=== PATIENT | male | born 1990 | race Caucasian/White ===

== ENCOUNTER 2024-02-07 14:32 | Emergency (ER) | payer OTHER ==
--- NOTE | 2024-02-07 15:31 | RAD REPORT ---
EXAM DESCRIPTION: RAD - Chest Single View - 02/07/2024 3:16 pm CLINICAL HISTORY: CHEST PAIN COMPARISON: No comparisons FINDINGS: Lines: None. Lungs: No evidence of edema or pneumonia. Pleural: No significant pleural effusions or pneumothorax. Cardiac: The heart size is within normal limits. Mediastinum: Within normal limits. Bones: No acute fractures. Other: None IMPRESSION: No acute cardiopulmonary disease.
[2024-02-07 16:04] LABS: Absolute Eosinophils 0.1 K/uL (0-0.5); Absolute Lymphocytes (CBC) 1.3 K/uL (0.7-4.9); Absolute Monocytes 0.6 K/uL (0.1-1.3); Absolute Neutrophil 2.1 K/uL (1.8-8.0); Basophils % 0.6 % (0-1.3); Eosinophils % 1.8 % (0-4.4); Hematocrit 45.8 % (39.6-49.0); Hemoglobin 15.2 g/dL (13.6-17.9); Lymphocytes % 32.5 % (15.3-44.8); MCHC 33.2 g/dL (32.0-36.0); MCV 93.3 fL (80-100); MPV 9.9 fL (7.6-11.3); Monocytes % 14.3 % (3.3-12.3); Neutrophils % 50.8 % (41.7-73.7); Platelets 215 thou/uL (152-406); RBC Red Blood Cell Count 4.91 M/uL (4.33-5.43); Red Cell Distribution Width 12.6 % (12.1-15.2)
[2024-02-07 18:05] LABS: Troponin High Sensitivity 17.3 pg/mL (<58.9)
--- NOTE | 2024-02-07 18:14 | ER ---
Nurse's Notes [facility] Name: Aroldo Muniz IV Age: 33 yrs Sex: Male : 1990 Arrival Date: 02/07/2024 Time: 14:32 Bed 7 Private MD: Diagnosis: Chest pain, unspecified Presentation: 02/06 15:02 Chief complaint: Patient states: Pt c/o pain/tightness in chest while at rest since tl4 last night. Pt states his limbs feel "clogged". Pt states chest discomfort has been ongoing since last night but has gotten better. Pt states he has had similar episodes in the past associated with anxiety. Coronavirus screen: At this time, the client does not indicate any symptoms associated with coronavirus-19. Ebola Screen: No symptoms or risks identified at this time. Initial Sepsis Screen: Does the patient meet any 2 criteria? No. Patient's initial sepsis screen is negative. Does the patient have a suspected source of infection? No. Patient's initial sepsis screen is negative. Risk Assessment: Do you want to hurt yourself or someone else? Patient reports no desire to harm self or others. Onset of symptoms was February 06, 2024. 15:02 Method Of Arrival: Ambulatory tl4 15:02 Acuity: HUGH 3 tl4 Triage Assessment: 15:07 General: Appears in no apparent distress. Behavior is calm, cooperative. Pain: tl4 Complains of pain in chest. EENT: No signs and/or symptoms were reported regarding the EENT system. Neuro: Level of Consciousness is awake, alert, obeys commands, Oriented to person, place, time, situation, Moves all extremities. Full function Gait is steady, Speech is normal. Cardiovascular: Reports chest pain. Respiratory: Airway is patent Respiratory effort is even, unlabored, Respiratory pattern is regular, symmetrical. GI: No signs and/or symptoms were reported involving the gastrointestinal system. : No signs and/or symptoms were reported regarding the genitourinary system. Derm: No signs and/or symptoms reported regarding the dermatologic system. Musculoskeletal: No signs and/or symptoms reported regarding the musculoskeletal system. Historical: - Allergies: 15:06 PENICILLINS; tl4 - Home Meds: 15:06 None [Active]; tl4 - PMHx: 15:06 Irritable bowel syndrome; tl4 - Immunization history:: Adult Immunizations unknown. - Infectious Disease History:: Denies. - Social history:: Smoking status: Reported history of juuling and/or vaping. Screenin:41 [facility] ED Fall Risk Assessment (Adult) History of falling in the last 3 months, ph including since admission No falls in past 3 months (0 pts) Confusion or Disorientation No (0 pts) Intoxicated or Sedated No (0 pts) Impaired Gait No (0 pts) Mobility Assist Device Used No (0 pt) Altered Elimination No (0 pt) Score/Fall Risk Level 0 - 2 = Low Risk Oriented to surroundings, Maintained a safe environment, Hourly rounding (assess needs \\T\\ fall precautionary measures) done. Abuse screen: Denies threats or abuse. Denies injuries from another. Nutritional screening: No deficits noted. Tuberculosis screening: No symptoms or risk factors identified. Assessment: 15:59 General: Appears in no apparent distress. Behavior is calm, cooperative. Pain: ph Complains of pain in chest. Cardiovascular: Reports chest pain. Respiratory: Airway is patent Respiratory effort is even, unlabored. Derm: Skin is pink, warm \\T\\ dry. Vital Signs: 15:02 BP 132 / 80; Pulse 80; Resp 16; Temp 98.2(TE); Pulse Ox 100% on R/A; Weight 74.84 kg; tl4 Height 5 ft. 10 in. ; Pain 6/10; 17:41 BP 124 / 85; Pulse 61; Resp 18; Pulse Ox 97% on R/A; ph 18:29 BP 121 / 82; Pulse 61; Resp 18; Temp 97; Pulse Ox 97% on R/A; ph 15:02 Body Mass Index 23.67 (74.84 kg, 177.8 cm) tl4 15:02 Pain Scale: Adult tl4 Vitals: 17:41 Cardiac Rhythm Assessment Sinus rhythm. ph ED Course: 14:37 Patient arrived in ED. ra3 14:38 [facility]C [facility] kb 14:38 Chad Willard MD is Attending Physician. kb 15:06 Triage completed. tl4 15:08 Arm band placed on right wrist. tl4 15:18 XRAY Chest (1 view) In Process Unspecified. EDMS 15:27 Florecita De Jesus, RN is Primary Nurse. ph 15:50 Initial lab(s) drawn, by me, sent to lab. Missed attempt(s): 22 gauge in right ph antecubital area. Bleeding controlled, band aid applied, catheter tip intact. 16:29 Patient has correct armband on for positive identification. Bed in low position. Call ph light in reach. Side rails up X 1. 17:41 Lab(s) recollected, by me, sent to lab. Inserted saline lock: 22 gauge in right ph antecubital area, using aseptic technique. Blood collected. 18:44 No provider procedures requiring assistance completed. IV discontinued, intact, ph bleeding controlled, No redness/swelling at site. Pressure dressing applied. Administered Medications: 18:29 Not Given (Other Intervention Used): aspirinchewable tablet 324 mg PO once; 81 mg ph tablets x 4 Medication: 17:41 VIS not applicable for this client. ph Outcome: 18:14 Discharge ordered by . kb 18:44 Discharged to home ambulatory, with significant other, ph 18:44 Condition: good 18:44 Discharge instructions given to patient, Instructed on discharge instructions, follow up and referral plans. medication usage, Demonstrated understanding of instructions, follow-up care, medications, Prescriptions given X 1, 18:45 Patient left the ED. ph Signatures: Dispatcher [employer] EDMS Halie Chamorro, FADIA CHRISTY-Florecita Wagner, RN RN ph Gareth Ventura RN RN tl4 Elif Duval ra3
--- NOTE | 2024-02-07 18:14 | EDPHYS ---
Physician Documentation [facility] Name: Aroldo Muniz IV Age: 33 yrs Sex: Male : 1990 Arrival Date: 02/07/2024 Time: 14:32 Bed 7 Private MD: ED Physician Chad Willard HPI: 02/06 18:01 This 33 yrs old Male presents to ER via Ambulatory with complaints of Heart kb palpitations. 18:01 Pt is a 33 year old male who presents for chest pain that started last night and has kb continued today. States he was able to calm down enough to get some sleep last night, but when he woke up he could still feel a little pain so he decided to come get it checked. States he has had this multiple times in the past, but never got evaluated. . Historical: - Allergies: 15:06 PENICILLINS; tl4 - Home Meds: 15:06 None [Active]; tl4 - PMHx: 15:06 Irritable bowel syndrome; tl4 - Immunization history:: Adult Immunizations unknown. - Infectious Disease History:: Denies. - Social history:: Smoking status: Reported history of juuling and/or vaping. ROS: 18:01 Constitutional: As per HPI kb Exam: 15:07 Constitutional: This is a well developed, well nourished patient who is awake, alert, kb and in no acute distress. Head/Face: Normocephalic, atraumatic. ENT: Moist Mucous membranes Chest/axilla: Normal chest wall appearance and motion. Cardiovascular: Regular rate Respiratory: Respirations even and unlabored. No increased work of breathing. Talking in full sentences Abdomen/GI: Soft, non-tender. No distention Skin: Warm, dry with normal turgor. Normal color. MS/ Extremity: Pulses equal, no cyanosis. Neurovascular intact. Full, normal range of motion. Neuro: Awake and alert, GCS 15, oriented to person, place, time, and situation. Moves all extremities. Normal gait. 15:07 ECG was reviewed by the Attending Physician. Vital Signs: 15:02 BP 132 / 80; Pulse 80; Resp 16; Temp 98.2(TE); Pulse Ox 100% on R/A; Weight 74.84 kg; tl4 Height 5 ft. 10 in. ; Pain 6/10; 17:41 BP 124 / 85; Pulse 61; Resp 18; Pulse Ox 97% on R/A; ph 18:29 BP 121 / 82; Pulse 61; Resp 18; Temp 97; Pulse Ox 97% on R/A; ph 15:02 Body Mass Index 23.67 (74.84 kg, 177.8 cm) tl4 15:02 Pain Scale: Adult tl4 MDM: 14:38 Patient medically screened. kb 18:02 Differential diagnosis: abnormal EKG, acute myocardial infarction, anxiety. Data kb reviewed: vital signs, nurses notes. 18:13 Consideration of Admission/Observation Escalation of care including kb admission/observation considered. admission considered but HEART score 0. Historians other than the Patient: Spouse/Significant Other: spouse. Counseling: I had a detailed discussion with the patient and/or guardian regarding the historical points, exam findings, and any diagnostic results supporting the discharge/admit diagnosis, lab results, radiology results, the need for outpatient follow up, a family practitioner, to return to the emergency department if symptoms worsen or persist or if there are any questions or concerns that arise at home. 02/06 15:05 Order name: Basic Metabolic Panel; Complete Time: 18:07 kb 02/06 15:05 Order name: CBC with Diff; Complete Time: 16:05 kb 02/06 15:05 Order name: Troponin HS; Complete Time: 18:07 kb 02/06 15:05 Order name: XRAY Chest (1 view); Complete Time: 15:37 kb 02/06 15:05 Order name: EKG; Complete Time: 15:06 kb 02/06 15:05 Order name: Cardiac monitoring; Complete Time: 16:29 kb 02/06 15:05 Order name: EKG - Nurse/Tech; Complete Time: 16:29 kb 02/06 15:05 Order name: IV Saline Lock; Complete Time: 16:29 kb 02/06 15:05 Order name: Labs collected and sent; Complete Time: 16:29 kb 02/06 15:05 Order name: O2 Per Protocol; Complete Time: 16:29 kb 02/06 15:05 Order name: O2 Sat Monitoring; Complete Time: 16:29 kb EC: Rate is 79 beats/min. Rhythm is regular. QRS [place] is Normal. HI interval is normal at kb 168 msec. QRS interval is normal at 92 msec. QT interval is normal at 405 msec. Administered Medications: 18:29 Not Given (Other Intervention Used): aspirinchewable tablet 324 mg PO once; 81 mg ph tablets x 4 Disposition Summary: 02/07/24 18:14 Discharge Ordered Notes: Location: Home kb Condition: Stable kb Diagnosis - Chest pain, unspecified kb Followup: kb - With: Emergency Department - When: As needed - Reason: Worsening of condition Followup: kb - With: Private Physician - When: 2 - 3 days - Reason: Recheck today's complaints, Continuance of care, Re-evaluation by your physician Discharge Instructions: - Discharge Summary Sheet kb - Nonspecific Chest Pain, Adult, [id number] kb Forms: - Medication Reconciliation Form kb - Antibiotic Education kb - Prescription Opioid Use kb - Patient Portal Instructions kb - Leadership Thank You Letter kb - Work release form ph - Family Work Release ph Prescriptions: - Hydroxyzine HCl 25 mg Oral tablet - take 1 tablet ORAL route every 8 hours As needed; 12 tablet; Refills: 0, kb Product Selection Permitted Signatures: Dispatcher [employer] Halie Whittington FNP-C FNP-Ckb Logdahl, Toni RN RN tl4 Florecita De Jesus RN
[2024-02-07 19:22] VITALS: BP 121/82; TEMP 97; O2SAT 97
--- NOTE | 2024-02-08 14:09 | EKG ---
Test Date: 2024-02-07 Test Time: 14:59:35 Cost Estimator: TL MEASUREMENT RESULTS: Intervals: Rate: 79 IA: 168 QRSD: 92 QT: 354 QTc: 405 [place]: P: 43 IA: 168 QRS: 81 T: 8 INTERPRETIVE STATEMENTS: Normal sinus rhythm Incomplete right bundle branch block Borderline ECG No previous ECG available for comparison Electronically Signed On 02-08-24 14:07:01 CDT by Damon Carey
== END 2024-02-07 18:45 | disposition home or self-care (01) ==
LOC: ER 14:32
DX: R07.9 Chest pain, unspecified (principal); R00.2 Palpitations; Z88.0 Allergy status to penicillin
CPT/HCPCS: 36415; 71045; 80048; 84484; 85025; 93005; 99284

== ENCOUNTER 2024-10-27 01:07 | Emergency (ER) | payer OTHER ==
[2024-10-27] MEDS ORDERED: ONDANSETRON 4 MG/2 ML VIAL ONE ×3 (01:42→06:24)
[2024-10-27] MEDS ORDERED: MORPHINE 4 MG/ML SYR ONE ×2 (01:42→03:22)
[2024-10-27] MEDS ORDERED: NA CHLORIDE 0.9% 1,000 ML ONE (01:43)
[2024-10-27 02:03] LABS: Absolute Eosinophils 0.1 K/uL (0-0.5); Absolute Lymphocytes (CBC) 0.5 K/uL (0.7-4.9); Absolute Monocytes 0.6 K/uL (0.1-1.3); Absolute Neutrophil 8.9 K/uL (1.8-8.0); Basophils % 0.1 % (0-1.3); Eosinophils % 0.6 % (0-4.4); Hematocrit 50.2 % (39.6-49.0); Hemoglobin 17.2 g/dL (13.6-17.9); Lymphocytes % 4.7 % (15.3-44.8); MCHC 34.2 g/dL (32.0-36.0); MCV 90.7 fL (80-100); MPV 9.2 fL (7.6-11.3); Monocytes % 5.6 % (3.3-12.3); Platelets 239 thou/uL (152-406); RBC Red Blood Cell Count 5.53 M/uL (4.33-5.43); Red Cell Distribution Width 12.7 % (12.1-15.2)
[2024-10-27 02:18] LABS: Specific Gravity 1.022 (1.005-1.030); Sqamous Epithelial <5 /HPF (None Seen); Urine Bacteria <20 /HPF (<20); Urine Bilirubin NEGATIVE (Negative); Urine Blood 2+ (Negative); Urine Clarity Extremely Turbid (Clear); Urine Color Yellow (Yellow); Urine Culture Reflex Order REFLEXED; Urine Glucose NEGATIVE (Negative); Urine Ketones TRACE (Negative); Urine Microscopic Reflex YN ORDER UMIC; Urine Mucus 2+ /HPF (None Seen); Urine Nitrite NEGATIVE (Negative); Urine Protein 1+ (Negative); Urine RBC >50 /HPF (None Seen); Urine Urobilinogen Normal (Normal); Urine pH 5.5 (5.0-7.0)
[2024-10-27 02:31] LABS: Albumin 4.4 g/dL (3.4-5.0); Albumin/Globulin Ratio 1.2 (1.1-1.8); Anion Gap 6.7 mEq/L (5.0-15.0); Bilirubin Total 0.7 mg/dL (0.2-1.0); Globulin 3.8 g/dL (2.3-3.5); Potassium 3.7 mEq/L (3.5-5.1); Protein, Total 8.2 g/dL (6.4-8.2)
[2024-10-27] MEDS ORDERED: KETOROLAC 30 MG/ML INJ ONE (03:21)
[2024-10-27 04:39] LABS: Band Neutrophils 23 % (0-1); Differential Total Cells Count 100; Eosinophils 1 % (0-3); Lymphocytes 6 % (15-42); Monocytes 3 % (0-10); Reactive Lymphocytes 8 %; Segmented Neutrophils 59 % (40-80)
[2024-10-27 04:40] LABS: Blood Morphology Comment NOT SEEN (NOT SEEN); Platelet Estimate ADEQ
--- NOTE | 2024-10-27 05:26 | EDPHYS ---
Physician Documentation [facility] Name: Aroldo Muniz IV Age: 34 yrs Sex: Male : 1990 Arrival Date: 10/27/2024 Time: 01:07 Bed 6 Private MD: ED Physician Chip Mi HPI: 10/27 01:33 This 34 yrs old Male presents to ER via Unassigned with complaints of ec2 Nausea/Vomiting/Diarrhea, Abdominal Pain. 01:33 Patient arrives today for evaluation of abdominal pain along with nausea and vomiting. ec2 Patient reports 2 days of symptoms. Patient reports that he is also having some diarrhea.. Historical: - Allergies: 01:55 PENICILLINS; bm8 - Home Meds: 01:55 None [Active]; bm8 - PMHx: 01:55 Irritable bowel syndrome; bm8 - PSHx: 01:55 None; bm8 - Immunization history:: Adult Immunizations up to date. - Infectious Disease History:: Denies. - Social history:: Smoking status: Patient denies any tobacco usage or history of. ROS: 01:33 Constitutional: as per hpi ec2 Exam: 01:33 Constitutional: GEN: NAD Head: atraumatic Eyes: EOMI Ears: External ears are ec2 normal. CV: Tachycardia LUNGS: no respiratory distress ABD: non-distended, soft, tender in the left upper abdomen. SKIN: no evidence of rashes MSK: no evidence of trauma Vital Signs: 01:52 BP 135 / 82; Pulse 109; Resp 18; Temp 98.2; Pulse Ox 97% ; Weight 79.38 kg; Height 6 bm8 ft. 1 in. ; Pain 3/10; 02:53 BP 119 / 81; Pulse 96; Resp 18; Temp 98.2; Pulse Ox 95% ; Pain 0/10; bm8 03:50 BP 118 / 79; Pulse 95; Resp 16; Pulse Ox 96% on R/A; dd2 04:59 BP 110 / 72; Pulse 91; Resp 18; Temp 98.2; Pulse Ox 95% ; Pain 0/10; bm8 06:37 BP 112 / 74; Pulse 91; Resp 17; Temp 98.2; Pulse Ox 100% ; Pain 0/10; bm8 01:52 Body Mass Index 23.09 (79.38 kg, 185.42 cm) bm8 01:52 Pain Scale: Adult bm8 02:53 Pain Scale: Adult bm8 04:59 Pain Scale: Adult bm8 06:37 Pain Scale: Adult bm8 Cesar Coma Score: 02:53 Eye Response: spontaneous(4). Motor Response: obeys commands(6). Verbal Response: bm8 oriented(5). Total: 15. 04:59 Eye Response: spontaneous(4). Motor Response: obeys commands(6). Verbal Response: bm8 oriented(5). Total: 15. 06:37 Eye Response: spontaneous(4). Motor Response: obeys commands(6). Verbal Response: bm8 oriented(5). Total: 15. MDM: 01:22 Medical Screening Exam initiated ec2 01:34 Data reviewed: vital signs, nurses notes. ED course: Patient arrives today for ec2 abdominal pain along with nausea vomiting and diarrhea. Examination yields abdominal findings as above. Will obtain lab work, urine studies, CT imaging.. 03:32 ED course: For CBC is reassuring. Metabolic profile with appropriate electrolytes and ec2 renal function. Urine shows blood and RBCs present. Lipase within normal ranges. Pending CT imaging.. 10/27 01:32 Order name: CBC with Diff; Complete Time: 05:25 ec2 10/27 01:32 Order name: CMP; Complete Time: 03:32 ec2 10/27 01:32 Order name: Lipase; Complete Time: 03:32 ec2 10/27 01:32 Order name: Urinalysis w/ reflexes; Complete Time: 03:32 ec2 10/27 02:22 Order name: Manual Differential; Complete Time: 05:25 EDMS 10/27 02:23 Order name: Urine Culture EDMS 10/27 01:32 Order name: CT Abd/Pelvis - IV Contrast Only ec2 10/27 01:32 Order name: IV Saline Lock; Complete Time: 01:51 ec2 10/27 01:32 Order name: Labs collected and sent; Complete Time: 01:51 ec2 Administered Medications: 01:51 Drug: NS 0.9% IV 1000 ml IV at 1 bolus Per protocol; to be given as a bolus over 60 dd2 minutes Route: IV; Rate: 1 bolus; Site: left antecubital; 02:07 Follow up: Response: No adverse reaction dd2 02:54 Follow up: Response: No adverse reaction; IV Status: Completed infusion bm8 01:52 Drug: Ondansetron IVP 4 mg IVP once; over 2 minutes Route: IVP; Site: left antecubital; dd2 02:07 Follow up: Response: No adverse reaction dd2 01:52 Drug: morphine IVP or IV 4 mg IVP once over 4 mins Route: IVP; Infused Over: 4 mins; dd2 Site: left antecubital; 02:07 Follow up: Response: No adverse reaction dd2 03:27 Drug: Ketorolac IVP 15 mg IVP once Route: IVP; Site: left antecubital; dd2 06:40 Follow up: Response: No adverse reaction bm8 03:27 Drug: morphine IVP or IV 4 mg IVP once over 4 mins Route: IVP; Infused Over: 4 mins; dd2 Site: left antecubital; 06:40 Follow up: Response: No adverse reaction bm8 03:27 Drug: Ondansetron IVP 4 mg IVP once; over 2 minutes Route: IVP; Site: left antecubital; dd2 06:39 Follow up: Response: No adverse reaction bm8 06:28 Not Given (Physician Discretion): ondansetron 4 mg IVP once; over 2 minutes bm8 06:28 Drug: Ondansetron Oral Disintegrating Tablet Oral Disintegrating Tablet 4 mg PO once bm8 Route: PO; 06:39 Follow up: Response: No adverse reaction bm8 06:37 Drug: Promethazine IM 25 mg IM once Route: IM; Site: right deltoid; bm8 06:39 Follow up: Response: No adverse reaction bm8 Disposition Summary: 10/27/24 05:26 Discharge Ordered Notes: Location: Home ec2 Condition: Stable ec2 Diagnosis - Noninfective gastroenteritis and colitis, unspecified ec2 Followup: ec2 - With: Private Physician - When: - Reason: Re-evaluation by your physician Discharge Instructions: - Discharge Summary Sheet ec2 - Viral Gastroenteritis, Adult, [id number] ec2 Forms: - Medication Reconciliation Form ec2 - Antibiotic Education ec2 - Prescription Opioid Use ec2 - Patient Portal Instructions ec2 - Leadership Thank You Letter ec2 Prescriptions: - Zofran 4 mg Oral Tablet - take 1 tablet ORAL route every 12 hours As needed; 20 tablet; Refills: 0, ec2 Product Selection Permitted - dicyclomine 10 mg Oral capsule - take 1 capsule ORAL route 3 times per day; 30 capsule; Refills: 0, Product ec2 Selection Permitted Signatures: Dispatcher [employer] Chiara Chapman, RN RN lg3 Chip Mi MD MD ec2 Rony Ashley RN RN bm8 RHONDA VELÁZQUEZ RN RN dd2
--- NOTE | 2024-10-27 05:26 | ER ---
Nurse's Notes [facility] Name: Aroldo Muniz IV Age: 34 yrs Sex: Male : 1990 Arrival Date: 10/27/2024 Time: 01:07 Bed 6 Private MD: Diagnosis: Noninfective gastroenteritis and colitis, unspecified Presentation: 10/27 01:52 Chief complaint: Patient states: I threw up the most I ever have in my life. bm8 Coronavirus screen: Vaccine status: At this time, the client does not indicate any symptoms associated with coronavirus-19. Ebola Screen: Patient negative for fever greater than or equal to 101.5 degrees Fahrenheit, and additional compatible Ebola Virus Disease symptoms Patient denies exposure to infectious person. Patient denies travel to an Ebola-affected area in the 21 days before illness onset. No symptoms or risks identified at this time. Initial Sepsis Screen: Does the patient meet any 2 criteria? No. Patient's initial sepsis screen is negative. Does the patient have a suspected source of infection? No. Patient's initial sepsis screen is negative. Risk Assessment: Do you want to hurt yourself or someone else? Patient reports no desire to harm self or others. Onset of symptoms was October 27, 2024 at 00:00. 01:52 Method Of Arrival: Ambulatory bm8 01:52 Acuity: HUGH 3 bm8 Triage Assessment: 01:55 General: Appears in no apparent distress. comfortable, Behavior is calm, cooperative, bm8 appropriate for age. Pain: Complains of pain in abdomen Pain currently is 3 out of 10 on a pain scale. Quality of pain is described as dull. EENT: No deficits noted. No signs and/or symptoms were reported regarding the EENT system. Neuro: No deficits noted. Level of Consciousness is awake, alert, obeys commands, Oriented to person, place, time, situation, Appropriate for age. Cardiovascular: Capillary refill < 3 seconds in bilateral fingers Patient's skin is warm and dry. Respiratory: Airway is patent Respiratory effort is even, unlabored, Respiratory pattern is regular, symmetrical, Breath sounds are clear bilaterally. GI: Abdomen is flat, non-distended, Bowel sounds present X 4 quads. Reports lower abdominal pain, upper abdominal pain, nausea, Pain is 3 out of 10 on a pain scale. vomiting. : No signs and/or symptoms were reported regarding the genitourinary system. Derm: No signs and/or symptoms reported regarding the dermatologic system. Musculoskeletal: No signs and/or symptoms reported regarding the musculoskeletal system. Historical: - Allergies: :55 PENICILLINS; bm8 - Home Meds: :55 None [Active]; bm8 - PMHx: :55 Irritable bowel syndrome; bm8 - PSHx: :55 None; bm8 - Immunization history:: Adult Immunizations up to date. - Infectious Disease History:: Denies. - Social history:: Smoking status: Patient denies any tobacco usage or history of. Screenin:57 [facility] ED Fall Risk Assessment (Adult) History of falling in the last 3 months, bm8 including since admission No falls in past 3 months (0 pts) Confusion or Disorientation No (0 pts) Intoxicated or Sedated No (0 pts) Impaired Gait No (0 pts) Mobility Assist Device Used No (0 pt) Altered Elimination No (0 pt) Score/Fall Risk Level 0 - 2 = Low Risk Oriented to surroundings, Maintained a safe environment, Educated pt \T\ family on fall prevention, incl call for assistance when getting out of bed, Assessed \T\ reinforced patient's understanding of fall precautions, Provided non-skid footwear, Hourly rounding (assess needs \T\ fall precautionary measures) done, Used ambulatory aids as needed (educated on \T\ assisted with), Used gait belt as appropriate. Abuse screen: Denies threats or abuse. Nutritional screening: No deficits noted. Tuberculosis screening: No symptoms or risk factors identified. Assessment: 02:53 Reassessment: Patient appears in no apparent distress at this time. Patient and/or bm8 family updated on plan of care and expected duration. Pain level reassessed. Patient is alert, oriented x 3, equal unlabored respirations, skin warm/dry/pink. Patient denies pain at this time. Patient states feeling better. Patient states symptoms have improved. GI: Patient currently denies nausea, pain, vomiting. 04:59 Reassessment: Patient appears in no apparent distress at this time. Patient and/or bm8 family updated on plan of care and expected duration. Pain level reassessed. Patient is alert, oriented x 3, equal unlabored respirations, skin warm/dry/pink. Patient denies pain at this time. Patient states feeling better. Patient states symptoms have improved. GI: Patient currently denies nausea, pain, vomiting. 06:37 Reassessment: Patient appears in no apparent distress at this time. Patient and/or bm8 family updated on plan of care and expected duration. Pain level reassessed. Patient is alert, oriented x 3, equal unlabored respirations, skin warm/dry/pink. pt vomitted once after discharge orders given, provider gave one more injection of medication prior to departure. Patient denies pain at this time. Patient states feeling better. Vital Signs: 01:52 BP 135 / 82; Pulse 109; Resp 18; Temp 98.2; Pulse Ox 97% ; Weight 79.38 kg; Height 6 bm8 ft. 1 in. ; Pain 3/10; 02:53 BP 119 / 81; Pulse 96; Resp 18; Temp 98.2; Pulse Ox 95% ; Pain 0/10; bm8 03:50 BP 118 / 79; Pulse 95; Resp 16; Pulse Ox 96% on R/A; dd2 04:59 BP 110 / 72; Pulse 91; Resp 18; Temp 98.2; Pulse Ox 95% ; Pain 0/10; bm8 06:37 BP 112 / 74; Pulse 91; Resp 17; Temp 98.2; Pulse Ox 100% ; Pain 0/10; bm8 01:52 Body Mass Index 23.09 (79.38 kg, 185.42 cm) bm8 01:52 Pain Scale: Adult bm8 02:53 Pain Scale: Adult bm8 04:59 Pain Scale: Adult bm8 06:37 Pain Scale: Adult bm8 Cesar Coma Score: 02:53 Eye Response: spontaneous(4). Motor Response: obeys commands(6). Verbal Response: bm8 oriented(5). Total: 15. 04:59 Eye Response: spontaneous(4). Motor Response: obeys commands(6). Verbal Response: bm8 oriented(5). Total: 15. 06:37 Eye Response: spontaneous(4). Motor Response: obeys commands(6). Verbal Response: bm8 oriented(5). Total: 15. ED Course: 01:10 Patient arrived in ED. im 01:14 Chip Mi MD is Attending Physician. ec2 01:49 Ashley, Rony, RN is Primary Nurse. bm8 01:51 CBC with Diff Sent. dd2 01:51 CMP Sent. dd2 01:51 Lipase Sent. dd2 01:51 Urinalysis w/ reflexes Sent. dd2 01:55 Triage completed. bm8 01:55 Arm band placed on right wrist. bm8 01:56 No provider procedures requiring assistance completed. Initial lab(s) drawn, by wy, bm8 sent to lab. Urine collected: clean catch specimen, clear. Inserted saline lock: 20 gauge in left antecubital area, using aseptic technique. Blood collected. Flushed with 10 mL NS. Patient maintains SpO2 saturation greater than 95% on room air. 01:57 Patient has correct armband on for positive identification. Placed in gown. Bed in low bm8 position. Call light in reach. Side rails up X 1. Adult w/ patient. Client placed on continuous cardiac and pulse oximetry monitoring. NIBP monitoring applied. environmental monitoring specialist on. Pulse ox on. NIBP on. Door closed. Noise minimized. Warm blanket given. Pillow given. Verbal reassurance given. 02:59 CT Abd/Pelvis - IV Contrast Only In Process Unspecified. EDMS 06:37 IV discontinued, intact, bleeding controlled, No redness/swelling at site. Pressure bm8 dressing applied. 06:37 Provided Education on: post er care, follow upw with PCP. bm8 Administered Medications: 01:51 Drug: NS 0.9% IV 1000 ml IV at 1 bolus Per protocol; to be given as a bolus over 60 dd2 minutes Route: IV; Rate: 1 bolus; Site: left antecubital; 02:07 Follow up: Response: No adverse reaction dd2 02:54 Follow up: Response: No adverse reaction; IV Status: Completed infusion bm8 01:52 Drug: Ondansetron IVP 4 mg IVP once; over 2 minutes Route: IVP; Site: left antecubital; dd2 02:07 Follow up: Response: No adverse reaction dd2 01:52 Drug: morphine IVP or IV 4 mg IVP once over 4 mins Route: IVP; Infused Over: 4 mins; dd2 Site: left antecubital; 02:07 Follow up: Response: No adverse reaction dd2 03:27 Drug: Ketorolac IVP 15 mg IVP once Route: IVP; Site: left antecubital; dd2 06:40 Follow up: Response: No adverse reaction bm8 03:27 Drug: morphine IVP or IV 4 mg IVP once over 4 mins Route: IVP; Infused Over: 4 mins; dd2 Site: left antecubital; 06:40 Follow up: Response: No adverse reaction bm8 03:27 Drug: Ondansetron IVP 4 mg IVP once; over 2 minutes Route: IVP; Site: left antecubital; dd2 06:39 Follow up: Response: No adverse reaction bm8 06:28 Not Given (Physician Discretion): ondansetron 4 mg IVP once; over 2 minutes bm8 06:28 Drug: Ondansetron Oral Disintegrating Tablet Oral Disintegrating Tablet 4 mg PO once bm8 Route: PO; 06:39 Follow up: Response: No adverse reaction bm8 06:37 Drug: Promethazine IM 25 mg IM once Route: IM; Site: right deltoid; bm8 06:39 Follow up: Response: No adverse reaction bm8 Medication: 01:57 VIS not applicable for this client. bm8 Outcome: 05:26 Discharge ordered by . ec2 06:37 Discharged to home ambulatory, bm8 06:37 Condition: stable 06:37 Discharge instructions given to patient, family, Instructed on discharge instructions, follow up and referral plans. no drinking with medication, no driving heavy equipment, medication usage, Demonstrated understanding of instructions, follow-up care, medications, Prescriptions given X 2, 06:41 Patient left the ED. bm8 Signatures: Dispatcher [employer] Rowena Martinez Edwin, MD MD ec2 Rony Ashley RN RN bm8 RHONDA VELÁZQUEZ RN RN dd2
[2024-10-27] MEDS ORDERED: ONDANSETRON 4 MG (ODT) TAB ONE (06:27)
[2024-10-27] MEDS ORDERED: PROMETHAZINE INJ 25 MG/ML AMP ONE (06:35)
[2024-10-27 06:45] VITALS: TEMP 98.2
[2024-10-27 06:51] VITALS: BP 112/74; O2SAT 100
--- NOTE | 2024-10-27 06:59 | RAD REPORT ---
CLINICAL HISTORY: Abdominal pain. COMPARISON: None. TECHNIQUE: CT ABDOMEN PELVIS WITH IV CONTRAST on 10/27/2024 1:32 AM CDT This exam was performed according to our departmental dose-optimization program, which includes autom ated exposure control, adjustment of the mA and/or kV according to patient size and/or use of iterative reconstruction technique. FINDINGS: Lower lungs are clear. Abdomen: The liver is normal in appearance. There is no biliary dilatation. Gallbladder is normal in appearance. The pancreas and spleen are normal in appearance. Adrenal glands are normal. Mid pole right renal calculus measures 5 mm. There is no hydronephrosis. Abdominal aorta is normal in course and caliber without aneurysm. There is no free air. There is no r etroperitoneal adenopathy. Pelvis: There is fluid throughout the colon. Urinary bladder is unremarkable. There is no free fluid. Appendix is normal. Skeleton: There are no acute osseous findings. No suspicious bony lesions. IMPRESSION: Minimal right nephrolithiasis without hydronephrosis. Fluid throughout the colon which can be seen in the setting of diarrheal illness. Electronically signed by: Dimas Sweeney MD 10/27/2024 05:07 AM CDT RP Due to temporary technical issues with the PACS/[employer] reporting system, reports are being vivi d by the in-house radiologist without review as a courtesy to ensure prompt reporting the interpreting radiologist is fully responsible for the content of the report. Transcribed Date/Time: 10/27/2024 6:59 AM
== END 2024-10-27 06:41 | disposition home or self-care (01) ==
LOC: ER 01:07
DX: K52.9 Noninfective gastroenteritis and colitis, unspecified (principal)
CPT/HCPCS: 96361; 87088; 85025; 81001; 87086; 36415; 83690; 80053; 74177; 96375; 96372; 96374; 99285; Q9967; J2550; Q0162; J2405 ×2; J7030

== ENCOUNTER 2024-11-08 17:16 | Emergency (ER) | payer OTHER ==
[2024-11-08 18:50] LABS: Specific Gravity 1.011 (1.005-1.030); Sqamous Epithelial None Seen /HPF (None Seen); Urine Bacteria <20 /HPF (<20); Urine Bilirubin NEGATIVE (Negative); Urine Blood 3+ (OVER) (Negative); Urine Clarity Extremely Turbid (Clear); Urine Color Light-Brown (Yellow); Urine Crystals Unidentified Few /HPF (None Seen); Urine Culture Reflex Order REFLEXED; Urine Glucose NEGATIVE (Negative); Urine Ketones NEGATIVE (Negative); Urine Microscopic Reflex YN ORDER UMIC; Urine Mucus Slight /HPF (None Seen); Urine Nitrite NEGATIVE (Negative); Urine Protein 1+ (Negative); Urine RBC >50 /HPF (None Seen); Urine Urobilinogen Normal (Normal); Urine WBC Clump Rare /HPF (None Seen); Urine Yeast (Budding) Trace /HPF (None Seen)
[2024-11-08] MEDS ORDERED: KETOROLAC 30 MG/ML INJ ONE (19:05)
[2024-11-08] MEDS ORDERED: ONDANSETRON 4 MG/2 ML VIAL ONE (19:05)
[2024-11-08] MEDS ORDERED: MORPHINE 4 MG/ML SYR ONE (19:05)
[2024-11-08 19:24] LABS: Absolute Basophils 0.1 K/uL (0-0.5); Absolute Eosinophils 0.1 K/uL (0-0.5); Absolute Lymphocytes (CBC) 2.1 K/uL (0.7-4.9); Absolute Monocytes 0.6 K/uL (0.1-1.3); Absolute Neutrophil 4.4 K/uL (1.8-8.0); Basophils % 0.8 % (0-1.3); Eosinophils % 0.7 % (0-4.4); Hematocrit 43.9 % (39.6-49.0); Hemoglobin 14.8 g/dL (13.6-17.9); Lymphocytes % 28.5 % (15.3-44.8); MCH 30.9 pg (27.0-35.0); MCHC 33.7 g/dL (32.0-36.0); MCV 91.7 fL (80-100); MPV 8.1 fL (7.6-11.3); Nucleated Red Blood Cells % 0.1 % (0-0); Platelets 290 thou/uL (152-406); RBC Red Blood Cell Count 4.78 M/uL (4.33-5.43); Red Cell Distribution Width 12.6 % (12.1-15.2)
--- NOTE | 2024-11-08 19:36 | RAD REPORT ---
EXAMINATION: Stone Protocol CLINICAL INDICATION: Male, 34 years old.hematuria, low back pain, lower abdomen pain TECHNIQUE: CT abdomen and pelvis was performed, without IV contrast, as per department protocol. Axia l, sagittal and coronal reconstructions were obtained. One or more of the following dose reduction techniques were used: Automated exposure control, adjustment of the mA and/or kV according to the pat ient size, and/or iterative reconstruction. Unless otherwise specified, incidental findings do not require dedicated imaging follow-up. [id number]. IV CONTRAST: Not administered. COMPARISON: 10/27/2024 FINDINGS: The lack of intravenous contrast limits the sensitivity of this exam for evaluation of solid visceral organs, vascular structures, and retroperitoneum. LOWER CHEST: No acute process identified.No significant pericardial effusion. UPPER GI: No significant abnormality. LIVER: No significant focal abnormality. GALLBLADDER/BILE DUCTS: No biliary ductal dilatation.? PANCREAS: No mass, ductal dilation, or vicki-pancreatic fluid. SPLEEN: Unremarkable. ADRENALS: No adrenal masses. KIDNEYS AND URETERS: Increased left-sided hydronephrosis compared with 10/27/2024. There are now sever al stones in the left distal ureter, the largest measuring 5 mm. Right nephrolithiasis with stone measuring 8 mm.Limited evaluation for renal lesions in the absence of IV contrast. ABDOMINAL AORTA AND OTHER VESSELS: Normal caliber aorta and IVC. PERITONEUM: No abnormal free fluid. No free air. LYMPH NODES: No pathologic lymphadenopathy. ABDOMINAL WALL: Unremarkable SMALL BOWEL/COLON: Small bowel has normal course and caliber. No colonic wall thickening or pericolon ic inflammatory changes.Normal appendix. URINARY BLADDER: Underdistended but grossly unremarkable. REPRODUCTIVE ORGANS: No pathologic process. MUSCULOSKELETAL: No acute or suspicious osseous abnormality. ADDITIONAL FINDINGS: None. IMPRESSION: Increased left-sided hydroureteronephrosis with several stones at the left distal ureter, some of whi ch have migrated to this location in the interim compared with 10/27/2024
[2024-11-08 19:46] LABS: Albumin 4.1 g/dL (3.4-5.0); Albumin/Globulin Ratio 1.2 (1.1-1.8); Anion Gap 6.8 mEq/L (5.0-15.0); Bilirubin Total 0.6 mg/dL (0.2-1.0); Globulin 3.3 g/dL (2.3-3.5); Potassium 3.8 mEq/L (3.5-5.1); Protein, Total 7.4 g/dL (6.4-8.2)
[2024-11-08] MEDS ORDERED: CEFTRIAXONE 1000 MG/VIAL ONE (20:15)
[2024-11-08] MEDS ORDERED: TAMSULOSIN 0.4 MG SR CAP ONE (20:15)
[2024-11-08] MEDS ORDERED: MAGNESIUM SULFATE 1 gm IVPB 1 GM/100 ML BAG IV ONE (20:16)
[2024-11-08] MEDS ORDERED: NA CHLORIDE 0.9% 1,000 ML ONE (20:16)
[2024-11-08] MEDS ORDERED: HYDROCODONE/APAP 10/325 TAB ONE (21:04)
--- NOTE | 2024-11-08 22:02 | ER ---
Nurse's Notes [facility] Name: Aroldo Muniz IV Age: 34 yrs Sex: Male : 1990 Arrival Date: 11/08/2024 Time: 17:16 Bed 16 Private MD: Diagnosis: Calculus of kidney with calculus of ureter Presentation: 11/08 17:50 Chief complaint: Patient states: he is having urinary symptoms that started approx 10 ap3 days ago. patient is complaining of having dark urine, difficulty and painful urination. Coronavirus screen: At this time, the client does not indicate any symptoms associated with coronavirus-19. Ebola Screen: No symptoms or risks identified at this time. Initial Sepsis Screen: Does the patient meet any 2 criteria? HR > 90 bpm. Does the patient have a suspected source of infection? No. Patient's initial sepsis screen is negative. Risk Assessment: Do you want to hurt yourself or someone else? Patient reports no desire to harm self or others. Onset of symptoms was October 29, 2024. 17:50 Method Of Arrival: Ambulatory ap3 17:50 Acuity: HUGH 3 ap3 Triage Assessment: 17:53 General: Appears uncomfortable, Behavior is calm, cooperative, appropriate for age. ap3 Pain: Complains of pain in groin Pain currently is 7 out of 10 on a pain scale. Neuro: Level of Consciousness is awake, alert, obeys commands, Oriented to person, place, time, situation. Cardiovascular: Patient's skin is warm and dry. Respiratory: Airway is patent Respiratory effort is even, unlabored, Respiratory pattern is regular, symmetrical. : Reports burning with urination, urgency, urinary frequency. Historical: - Allergies: 17:53 PENICILLINS; ap3 - Home Meds: 17:53 amlodipine oral [Active]; ap3 - PMHx: 17:53 Hypertensive disorder; ap3 - Immunization history:: Adult Immunizations unknown. - Infectious Disease History:: Denies. - Social history:: Smoking status: Patient denies any tobacco usage or history of. Screenin:54 Abuse screen: Denies threats or abuse. Nutritional screening: No deficits noted. ap3 Tuberculosis screening: No symptoms or risk factors identified. 19:49 [facility] ED Fall Risk Assessment (Adult) History of falling in the last 3 months, cm10 including since admission No falls in past 3 months (0 pts) Confusion or Disorientation No (0 pts) Intoxicated or Sedated No (0 pts) Impaired Gait No (0 pts) Mobility Assist Device Used No (0 pt) Altered Elimination No (0 pt) Score/Fall Risk Level 0 - 2 = Low Risk Oriented to surroundings, Maintained a safe environment, Hourly rounding (assess needs \T\ fall precautionary measures) done. Assessment: 19:49 General: Appears in no apparent distress. uncomfortable, Behavior is calm, cooperative. cm10 Pain: Complains of pain in groin Pain currently is 5 out of 10 on a pain scale. Neuro: No deficits noted. Level of Consciousness is awake, alert, obeys commands, Oriented to person, place, time, situation, Appropriate for age. Respiratory: No deficits noted. Airway is patent Respiratory effort is even, unlabored, Respiratory pattern is regular, symmetrical. 21:21 Reassessment: Patient appears in no apparent distress at this time. Patient and/or cm10 family updated on plan of care and expected duration. Pain level reassessed. Patient is alert, oriented x 3, equal unlabored respirations, skin warm/dry/pink. Vital Signs: 17:50 BP 153 / 103; Pulse 108; Resp 17; Temp 97.1; Pulse Ox 100% ; Weight 70.31 kg; Height 5 ap3 ft. 10 in. ; Pain 5/10; 19:48 BP 136 / 92; Pulse 105; Resp 15; Pulse Ox 98% on R/A; cm10 20:00 BP 134 / 85; Pulse 77; Resp 15; Pulse Ox 99% ; cm10 20:30 BP 150 / 96; Pulse 94; Resp 15; Pulse Ox 99% ; cm10 21:00 BP 138 / 92; Pulse 86; Resp 15; Pulse Ox 98% ; cm10 22:00 BP 144 / 97; Pulse 94; Resp 15; Pulse Ox 98% ; cm10 17:50 Body Mass Index 22.24 (70.31 kg, 177.8 cm) ap3 17:50 Pain Scale: Adult ap3 ED Course: 17:20 Patient arrived in ED. cj3 17:26 Chad Wu PA is PHCP. cp 17:26 Tito Julien MD is Attending Physician. cp 17:53 Triage completed. ap3 17:54 Arm band placed on right wrist. ap3 18:40 Urine collected: clean catch specimen, blood tinged. jl7 19:17 Initial lab(s) drawn, by ED staff, sent to lab. Inserted saline lock: 20 gauge in left lg3 antecubital area, using aseptic technique. Blood collected. Flushed with 10 mL NS. 19:17 CK Sent. lg3 19:17 Urine Culture Sent. lg3 19:18 CBC with Diff Sent. lg3 19:18 CMP Sent. lg3 19:18 Lipase Sent. lg3 19:25 CT Stone Protocol In Process Unspecified. EDMS 19:44 Kenna Heath, RN is Primary Nurse. cm10 19:49 Patient has correct armband on for positive identification. Bed in low position. Call cm10 light in reach. Pulse ox on. NIBP on. 21:16 Chad Willard MD is Attending Physician. cp 22:01 Ron Covarrubias MD is Referral Physician. cp 22:18 Provided Education on: FOLLOW-UP INSTRUCTIONS. cm10 22:18 No provider procedures requiring assistance completed. IV discontinued, intact, cm10 bleeding controlled, No redness/swelling at site. Pressure dressing applied. Administered Medications: 19:17 Drug: Ketorolac IVP 15 mg IVP once Route: IVP; Site: left antecubital; lg3 19:45 Follow up: Response: No adverse reaction cm10 19:18 Drug: morphine IVP or IV 4 mg IVP once over 4 mins Route: IVP; Infused Over: 4 mins; lg3 Site: left antecubital; 19:45 Follow up: Response: No adverse reaction cm10 19:18 Drug: Ondansetron IVP 4 mg IVP once; over 2 minutes Route: IVP; Site: left antecubital; lg3 19:45 Follow up: Response: No adverse reaction cm10 20:24 Drug: NS 0.9% IV 1000 ml IV at 1000 ml once; to be given as a bolus over 60 minutes cm10 Route: IV; Rate: 1000 ml; Site: left antecubital; 21:19 Follow up: Response: No adverse reaction; IV Status: Completed infusion; IV Intake: cm10 1000ml 20:24 Drug: Magnesium Sulfate IVPB 1 grams IVPB once over 1 hrs Route: IVPB; Infused Over: 1 cm10 hrs; Site: left antecubital; 21:21 Follow up: Response: No adverse reaction; IV Status: Completed infusion; IV Intake: cm10 100ml 20:24 Drug: Flomax PO 0.4 mg PO once Route: PO; cm10 21:20 Follow up: Response: No adverse reaction cm10 20:24 Drug: Rocephin IV 1 grams IV at calculated rate once; Given slow IV push per pharmacy cm10 instructions Route: IV; Rate: calculated rate; Site: left antecubital; 20:34 Follow up: Response: No adverse reaction; IV Status: Completed infusion; IV Intake: [id number] 21:10 Drug: HYDROcodone-acetaminophen PO 10 mg-325 mg 1 tabs PO once Route: PO; cm10 21:21 Follow up: Response: No adverse reaction cm10 Medication: 19:49 VIS not applicable for this client. cm10 Intake: 20:34 IV: 10ml; Total: 10ml. cm10 21:19 IV: 1000ml; Total: 1010ml. cm10 21:21 IV: 100ml; Total: 1110ml. cm10 Outcome: 22:01 Discharge ordered by MD. cp 22:18 Discharged to home ambulatory, with significant other, cm10 22:18 Condition: good 22:18 Discharge instructions given to patient, Instructed on discharge instructions, follow up and referral plans. medication usage, Demonstrated understanding of instructions, follow-up care, medications, Prescriptions given X 4, 22:19 Patient left the ED. cm10 Signatures: Dispatcher [employer] EDMS Chad Wu PA PA cp Leal, Jahala, RN RN jl7 Roxanne Avendano RN RN pedro luis3 Chiara Peralta RN RN lg3 Kenna Heath RN RN cm10 Nicole Guzman 3 Corrections: (The following items were deleted from the chart) 17:53 17:53 PMHx: Irritable bowel syndrome; ap3 ap3 20:05 20:04 Discharged to home ambulatory, with family, cm10 cm10 20:05 20:04 Condition: good cm10 cm10 20:05 20:04 Discharge instructions given to interdisciplinary professor, Instructed on discharge instructions, cm10 follow up and referral plans. medication usage, wound care, Demonstrated understanding of instructions, follow-up care, medications, wound care, cm10
--- NOTE | 2024-11-08 22:02 | EDPHYS ---
Physician Documentation [facility] Name: Aroldo Muniz IV Age: 34 yrs Sex: Male : 1990 Arrival Date: 11/08/2024 Time: 17:16 Bed 16 Private MD: ED Physician Chad Willard HPI: 11/08 18:45 This 34 yrs old Male presents to ER via Ambulatory with complaints of Urinary Problem. cp 18:45 The patient presents with urinary symptoms, hematuria. cp 18:45 Onset: The symptoms/episode began/occurred today. Associated signs and symptoms: cp Pertinent positives: lower abdomen pain, Pertinent negatives: constipation, diarrhea, fever. Severity of symptoms: in the emergency department the symptoms are unchanged, despite home interventions. Historical: - Allergies: 17:53 PENICILLINS; ap3 - Home Meds: 17:53 amlodipine oral [Active]; ap3 - PMHx: 17:53 Hypertensive disorder; ap3 - Immunization history:: Adult Immunizations unknown. - Infectious Disease History:: Denies. - Social history:: Smoking status: Patient denies any tobacco usage or history of. ROS: 18:50 Constitutional: Negative for body aches, chills, fever, poor PO intake, cp 18:50 Eyes: Negative for injury, pain, redness, and discharge, cp 18:50 ENT: Negative for drainage from ear(s), ear pain, sore throat, difficulty swallowing, difficulty handling secretions, 18:50 Abdomen/GI: Positive for abdominal pain, of the suprapubic area, Negative for nausea, vomiting, and diarrhea, 18:50 : Positive for hematuria, testicular pain 18:50 Neuro: Negative for altered mental status, headache, weakness, 18:50 All other systems are negative, Exam: 18:55 Constitutional: The patient appears in no acute distress, alert, awake, non-toxic, well cp developed, well nourished, 18:55 Head/Face: Normocephalic, atraumatic. cp 18:55 Eyes: Periorbital structures: appear normal, Conjunctiva: normal, no exudate, no injection, Sclera: no appreciated abnormality, Lids and lashes: appear normal, bilaterally, 18:55 ENT: External ear(s): are unremarkable, Nose: is normal, Mouth: is normal, Posterior pharynx: Airway: no evidence of obstruction, patent, 18:55 Chest/axilla: Inspection: normal, 18:55 Cardiovascular: Rate: normal, 18:55 Respiratory: the patient does not display signs of respiratory distress, Respirations: normal, no use of accessory muscles, Breath sounds: are clear throughout, no decreased breath sounds, no stridor, no wheezing, 18:55 Abdomen/GI: Inspection: abdomen appears normal, Palpation: soft, in all quadrants, moderate abdominal tenderness, in the suprapubic area, rebound tenderness, is not appreciated, involuntary guarding, is not appreciated, 18:55 Back: CVA tenderness, is absent, Vital Signs: 17:50 BP 153 / 103; Pulse 108; Resp 17; Temp 97.1; Pulse Ox 100% ; Weight 70.31 kg; Height 5 ap3 ft. 10 in. ; Pain 5/10; 19:48 BP 136 / 92; Pulse 105; Resp 15; Pulse Ox 98% on R/A; cm10 20:00 BP 134 / 85; Pulse 77; Resp 15; Pulse Ox 99% ; cm10 20:30 BP 150 / 96; Pulse 94; Resp 15; Pulse Ox 99% ; cm10 21:00 BP 138 / 92; Pulse 86; Resp 15; Pulse Ox 98% ; cm10 22:00 BP 144 / 97; Pulse 94; Resp 15; Pulse Ox 98% ; cm10 17:50 Body Mass Index 22.24 (70.31 kg, 177.8 cm) ap3 17:50 Pain Scale: Adult ap3 MDM: 17:59 Medical Screening Exam initiated cp 22:01 Data reviewed: vital signs, nurses notes, lab test result(s), radiologic studies, CT cp scan, and as a result, I will discharge patient. 22:01 Differential diagnosis: appendicitis, UTI, urinary retention, prostatitis, urethritis. cp I considered the following discharge prescriptions or medication management in the emergency department Medications were administered in the Emergency Department. See MAR. Counseling: I had a detailed discussion with the patient and/or guardian regarding the historical points, exam findings, and any diagnostic results supporting the discharge/admit diagnosis, lab results, radiology results, the need for outpatient follow up, for definitive care, a urologist, to return to the emergency department if symptoms worsen or persist or if there are any questions or concerns that arise at home. Response to treatment: the patient's symptoms have markedly improved after treatment, and as a result, I will discharge patient. ED course: patient reports he would like to try outpatient treatment and will return to ED for reevaluation worsening symptoms. 11/08 18:32 Order name: Urinalysis w/ reflexes; Complete Time: 18:52 jl7 11/08 18:52 Interpretation: Reviewed. cp 11/08 18:49 Order name: CBC with Diff; Complete Time: 19:56 cp 11/08 18:49 Order name: CMP; Complete Time: 19:56 cp 11/08 18:49 Order name: Lipase; Complete Time: 19:56 cp 11/08 18:53 Order name: Urine Culture EDMS 11/08 18:53 Order name: CK; Complete Time: 19:56 cp 11/08 18:52 Order name: CT Stone Protocol; Complete Time: 19:56 cp 11/08 19:58 Interpretation: Report reviewed. cp 11/08 18:49 Order name: IV Saline Lock; Complete Time: 19:17 cp 11/08 18:49 Order name: Labs collected and sent; Complete Time: 19:18 cp Administered Medications: 19:17 Drug: Ketorolac IVP 15 mg IVP once Route: IVP; Site: left antecubital; lg3 19:45 Follow up: Response: No adverse reaction cm10 19:18 Drug: morphine IVP or IV 4 mg IVP once over 4 mins Route: IVP; Infused Over: 4 mins; lg3 Site: left antecubital; 19:45 Follow up: Response: No adverse reaction cm10 19:18 Drug: Ondansetron IVP 4 mg IVP once; over 2 minutes Route: IVP; Site: left antecubital; lg3 19:45 Follow up: Response: No adverse reaction cm10 20:24 Drug: NS 0.9% IV 1000 ml IV at 1000 ml once; to be given as a bolus over 60 minutes cm10 Route: IV; Rate: 1000 ml; Site: left antecubital; 21:19 Follow up: Response: No adverse reaction; IV Status: Completed infusion; IV Intake: cm10 1000ml 20:24 Drug: Magnesium Sulfate IVPB 1 grams IVPB once over 1 hrs Route: IVPB; Infused Over: 1 cm10 hrs; Site: left antecubital; 21:21 Follow up: Response: No adverse reaction; IV Status: Completed infusion; IV Intake: cm10 100ml 20:24 Drug: Flomax PO 0.4 mg PO once Route: PO; cm10 21:20 Follow up: Response: No adverse reaction cm10 20:24 Drug: Rocephin IV 1 grams IV at calculated rate once; Given slow IV push per pharmacy cm10 instructions Route: IV; Rate: calculated rate; Site: left antecubital; 20:34 Follow up: Response: No adverse reaction; IV Status: Completed infusion; IV Intake: [id number] 21:10 Drug: HYDROcodone-acetaminophen PO 10 mg-325 mg 1 tabs PO once Route: PO; cm10 21:21 Follow up: Response: No adverse reaction cm10 Disposition Summary: 11/08/24 22:01 Discharge Ordered Notes: Location: Home cp Problem: new cp Symptoms: have improved cp Condition: Stable cp Diagnosis - Calculus of kidney with calculus of ureter cp Followup: cp - With: Ron Covarrubias MD - When: 5 - 6 days - Reason: Recheck today's complaints Discharge Instructions: - Discharge Summary Sheet cp - Kidney Stones cp - Renal Colic cp Forms: - Medication Reconciliation Form cp - Antibiotic Education cp - Prescription Opioid Use cp - Patient Portal Instructions cp - Leadership Thank You Letter cp Prescriptions: - Flomax 0.4 mg Oral capsule - take 1 capsule ORAL route every day at bedtime; 7 capsule; Refills: 0, Product cp Selection Permitted - Cipro 500 mg Oral Tablet - take 1 tablet ORAL route every 12 hours for 7 days; 14 tablet; Refills: 0, cp Product Selection Permitted - ondansetron 8 mg Oral Tablet,disintegrating - take 1 tablet ORAL route every 12 hours; 15 tablet; Refills: 0, Product cp Selection Permitted - Tylenol-Codeine #3 300mg-30mg Oral tablet - take 2 tablets ORAL route every 6 hours As needed; 16 tablet; Refills: 0, cp Product Selection Permitted Signatures: Dispatcher [employer] [facility]CA Chad Wu PA PA cp Prokisch, Amanda RN RN ap3 Chiara Peralta RN RN [email or web address] Kenna Heath RN RN cm10 Corrections: (The following items were deleted from the chart) 17:53 17:53 PMHx: Irritable bowel syndrome; ap3 ap3 18:54 18:53 CREATINE PHOSPHOKINASE+RYLANDZ ordered. EDMS EDMS
[2024-11-08 22:52] VITALS: TEMP 97.1
[2024-11-08 23:10] VITALS: O2SAT 98
[2024-11-08 23:12] VITALS: BP 144/97
== END 2024-11-08 22:19 | disposition home or self-care (01) ==
LOC: ER 17:16
DX: N20.2 Calculus of kidney with calculus of ureter (principal)
CPT/HCPCS: 96365; 87088; 85025; 81001; 87086; 36415; 82550; 83690; 80053; 76377; 74176; 96375; 99284; J3475; J2405; J7030; J0696